=== PATIENT | male | born 1985 | race Caucasian/White ===

== ENCOUNTER 2020-02-14 09:43 | Emergency (ER) | payer MEDICAID, OTHER ==
[2020-02-14 10:27] LABS: Absolute Neutrophil Ct (ANC) 7.53 (1.4-6.9); BASOPHIL % 0.2 % (0.0-0.4); Basophil (Absolute #) 0.02 (0-0.4); Eosinophil % 0.7 % (0.00-5.0); Eosinophil (Absolute #) 0.07 (0-0.5); Hematocrit 45.1 % (42-50); Lymphocyte (Absolute #) 1.65 (1.0-4.6); Lymphocytes % 16.1 % (24.0-44.0); Mean Cell Volume 95.8 fl (78-100); Mean Corpuscular Hemoglobin 31.8 pg (26-32); Mean Corpuscular Hgb Concent. 33.3 g/dl (32-36); Mean Platelet Volume 10.1 fl (7.5-11.0); Monocytes % 9.7 % (0.0-12.0); Neutrophil % 73.3 % (36.0-66.0); Platelet Count 227 K/mm3 (150-450); Red Blood Count 4.71 M/mm3 (4.1-5.6); Red Cell Distribution Width 12.7 % (11.5-14.0); White Blood Count 10.3 K/mm3 (4.0-10.5)
[2020-02-14 10:37] LABS: ALBUMIN 4.3 g/dL (3.5-5.0); ALKALINE PHOSPHATASE 73 U/L (38-126); ANION GAP 9.9 MEQ/L (5-15); BLOOD UREA NITROGEN 16 mg/dL (9-20); CHLORIDE 100 mmol/L (98-107); Calcium 9.3 mg/dL (8.4-10.2); Carbon Dioxide 32 mmol/L (22-30); Creatinine 1 0.97 mg/dL (0.66-1.25); EST GLOMERULAR FILTRATION RATE > 60.0 ML/MIN; Glucose 123 mg/dL (74-106); Potassium 3.9 mmol/L (3.5-5.1); SGOT/AST 27 U/L (17-59); SGPT/ALT 40 U/L (0-50); SODIUM 138 mmol/L (137-145); Total Protein 7.6 g/dL (6.3-8.2)
--- NOTE | 2020-02-14 11:09 | ERPHSYRPT ---
- History of Present Illness Historian: patient Exam Limitations: no limitations Patient Subjective Stated Complaint: pt here for constipation for 2 weeks now, he has had a couple small loose stools over the last 2 weeks Triage Nursing Assessment: pt alert, resp easy, walked in, face mask on, abd soft nontender Physician History: 34 yo wm w constipation x 2wks. Pt denies h/o constipation. He states that he has mild lower abdominal pain which he rates a 4/10. Nothing makes the pain better or worse. Pt does occ take norco for LE pain. He denies N/V/melena/hematochezia/fever/dysuria/hematuria/chest pain/dyspnea/fever. Timing/Duration: week(s) (2wks) Activities at Onset: none Quality: dullness Abdominal Pain Onset Location: other (Lower abdomen) Pain Radiation: no radiation Severity of Pain-Max: mild Severity of Pain-Current: mild Modifying Factors: Improves With: nothing Associated Symptoms: No back, No chest pain, No diaphoresis, No diarrhea, No fever/chills, No fatigue, No headache, No heartburn, No loss of appetite, No nausea, No neck pain, No rash, No shortness of breath, No syncope, No testicular pain, No vomiting, No weakness Previous symptoms: no prior history Allergies/Adverse Reactions: No Known Drug Allergies Allergy (Unverified 02/14/20 09:57) Hx Influenza Vaccination/Date Given: No Hx Pneumococcal Vaccination/Date Given: No Immunizations Up to Date: Yes Travel Risk - International Travel Have you traveled outside of the country in past 3 weeks: No - Coronavirus Screening Close contact with a COVID-19 positive Pt in past 14-21 Days: No - Review of Systems Constitutional: No Symptoms Eyes: No Symptoms Ears, Nose, & Throat: No Symptoms Respiratory: No Symptoms Cardiac: No Symptoms Abdominal/Gastrointestinal: Abdominal Pain, Constipation, No Nausea, No Vomiting, No Diarrhea, No Hematemesis, No Hematochezia, No Melena, No Dysphagia Genitourinary Symptoms: No Symptoms Musculoskeletal: No Symptoms Skin: No Symptoms Neurological: No Symptoms Psychological: No Symptoms Endocrine: No Symptoms Hematologic/Lymphatic: No Symptoms Immunological/Allergic: No Symptoms - Past Medical History Pertinent Past Medical History: No Neurological History: No Pertinent History ENT History: No Pertinent History Cardiac History: No Pertinent History Respiratory History: No Pertinent History Endocrine Medical History: No Pertinent History Musculoskeletal History: No Pertinent History GI Medical History: No Pertinent History History: No Pertinent History Psycho-Social History: No Pertinent History Male Reproductive Disorders: No Pertinent History - Past Surgical History Past Surgical History: Yes Neuro Surgical History: No Pertinent History Cardiac: No Pertinent History Respiratory: No Pertinent History Gastrointestinal: No Pertinent History Genitourinary: No Pertinent History Musculoskeletal: No Pertinent History, Orthopedic Surgery Male Surgical History: No Pertinent History Other Surgical History: right clavical - Social History Smoking Status: Current every day smoker Exposure to second hand smoke: No Drug Use: marijuana Patient Lives Alone: No Significant Family History: no pertinent family hx - Nursing Vital Signs Nursing Vital Signs: Initial Vital Signs Temperature 97.2 F 02/14/20 09:52 Pulse Rate 96 H 02/14/20 09:52 Respiratory Rate 16 02/14/20 09:52 Blood Pressure 129/87 02/14/20 09:52 O2 Sat by Pulse Oximetry 96 02/14/20 09:52 Pain Scale Pain Intensity 8 - Physical Exam General Appearance: no apparent distress Eye Exam: PERRL/EOMI, eyes nml inspection, No scleral icterus, No pale conjunctivae Ears, Nose, Throat Exam: normal ENT inspection, TMs normal, pharynx normal, mo ist mucous membranes Neck Exam: normal inspection, non-tender, supple, full range of motion Respiratory Exam: normal breath sounds, lungs clear, airway intact, No respiratory distress Cardiovascular Exam: regular rate/rhythm, normal heart sounds, normal peripheral pulses, No murmur Gastrointestinal/Abdomen Exam: soft, normal bowel sounds, other (Mild RLQ/LLQ TTP wo guarding or rebound) Rectal Exam: deferred Back Exam: normal inspection, normal range of motion Extremity Exam: normal inspection, normal range of motion Neurologic Exam: alert, oriented x 3, cooperative, 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, n ormal mood/affect, nml cerebellar function, nml station & gait, sensation nml, No motor deficits, No sensory deficit Skin Exam: normal color, warm, dry Lymphatic Exam: adenopathy SpO2 Interpretation: normal SpO2: 96 O2 Delivery: Room Air - Course Nursing assessment & vital signs reviewed: Yes - CT Exams Abdomen/Pelvis CT Interpretation: Discussed w/radiologist, diverticulitis (possible early) Ordered Tests: Active Orders 24 hr Category Date Time Status ABDOMEN AND PELVIS W/0 CONTRAS [CT] Stat Exams 02/14/20 10:11 Completed CBC W DIFF Stat Lab 02/14/20 10:24 Completed CMP Stat Lab 02/14/20 10:24 Completed UA W/RFX UR CULTURE Stat Lab 02/14/20 11:17 Completed Urine Triage Profile Stat Lab 02/14/20 11:17 Completed Lab/Rad Data: Laboratory Result Diagrams 02/14/20 10:24 02/14/20 10:24 Laboratory Results 02/14/20 02/14/20 02/14/20 Range/Units 11:17 11:17 10:24 WBC (4.0-10.5) K/mm3 RBC (4.1-5.6) M/mm3 Hgb (12.5-18.0) gm/dl Hct (42-50) % MCV (78-100) fl MCH (26-32) pg MCHC (32-36) g/dl RDW (11.5-14.0) % Plt Count (150-450) K/mm3 MPV (7.5-11.0) fl Gran % (36.0-66.0) % Eos # (Auto) (0-0.5) Absolute Lymphs (auto) (1.0-4.6) Absolute Monos (auto) (0.0-1.3) Lymphocytes % (24.0-44.0) % Monocytes % (0.0-12.0) % Eosinophils % (0.00-5.0) % Basophils % (0.0-0.4) % Absolute Granulocytes (1.4-6.9) Basophils # (0-0.4) Sodium 138 (137-145) mmol/L Potassium 3.9 (3.5-5.1) mmol/L Chloride 100 (98-107) mmol/L Carbon Dioxide 32 H (22-30) mmol/L Anion Gap 9.9 (5-15) MEQ/L BUN 16 (9-20) mg/dL Creatinine 0.97 (0.66-1.25) mg/dL Estimated GFR > 60.0 ML/MIN Glucose 123 H (74-106) mg/dL Calcium 9.3 (8.4-10.2) mg/dL Total Bilirubin 0.60 (0.2-1.3) mg/dL AST 27 (17-59) U/L ALT 40 (0-50) U/L Alkaline Phosphatase 73 (38-126) U/L Serum Total Protein 7.6 (6.3-8.2) g/dL Albumin 4.3 (3.5-5.0) g/dL Urine Color ALEJANDRO (YELLOW) Urine Appearance SLIGHTLY CLOUDY (CLEAR) Urine pH 5.0 (5-6) Ur Specific Hennessey 1.032 (1.005-1.025) Urine Protein 30 (Negative) Urine Ketones NEGATIVE (NEGATIVE) Urine Blood NEGATIVE (0-5) Theodore/ul Urine Nitrite NEGATIVE (NEGATIVE) Urine Bilirubin NEGATIVE (NEGATIVE) Urine Urobilinogen NEGATIVE (0-1) mg/dL Ur Leukocyte Esterase NEGATIVE (NEGATIVE) Urine WBC (Auto) 0-2 (0-5) /HPF Urine RBC (Auto) NONE (0-2) /HPF U Epithel Cells (Auto) NONE (FEW) /HPF Urine Bacteria (Auto) NONE (NEGATIVE) /HPF Urine Mucus (Auto) SLIGHT (NEGATIVE) /HPF Urine Culture Reflexed NO (NO) Urine Glucose NEGATIVE (NEGATIVE) mg/dL Urine Opiates Level POSITIVE (NEGATIVE) Ur Methadone NEGATIVE (NEGATIVE) Urine Barbiturates NEGATIVE (NEGATIVE) Ur Phencyclidine (PCP) NEGATIVE (NEGATIVE) Urine Amphetamine NEGATIVE (NEGATIVE) U Benzodiazepine Level NEGATIVE (NEGATIVE) Urine Cocaine NEGATIVE (NEGATIVE) Urine Marijuana (THC) POSITIVE (NEGATIVE) 02/14/20 Range/Units 10:24 WBC 10.3 (4.0-10.5) K/mm3 RBC 4.71 (4.1-5.6) M/mm3 Hgb 15.0 (12.5-18.0) gm/dl Hct 45.1 (42-50) % MCV 95.8 (78-100) fl MCH 31.8 (26-32) pg MCHC 33.3 (32-36) g/dl RDW 12.7 (11.5-14.0) % Plt Count 227 (150-450) K/mm3 MPV 10.1 (7.5-11.0) fl Gran % 73.3 H (36.0-66.0) % Eos # (Auto) 0.07 (0-0.5) Absolute Lymphs (auto) 1.65 (1.0-4.6) Absolute Monos (auto) 1.00 (0.0-1.3) Lymphocytes % 16.1 L (24.0-44.0) % Monocytes % 9.7 (0.0-12.0) % Eosinophils % 0.7 (0.00-5.0) % Basophils % 0.2 (0.0-0.4) % Absolute Granulocytes 7.53 H (1.4-6.9) Basophils # 0.02 (0-0.4) Sodium (137-145) mmol/L Potassium (3.5-5.1) mmol/L Chloride (98-107) mmol/L Carbon Dioxide (22-30) mmol/L Anion Gap (5-15) MEQ/L BUN (9-20) mg/dL Creatinine (0.66-1.25) mg/dL Estimated GFR ML/MIN Glucose (74-106) mg/dL Calcium (8.4-10.2) mg/dL Total Bilirubin (0.2-1.3) mg/dL AST (17-59) U/L ALT (0-50) U/L Alkaline Phosphatase (38-126) U/L Serum Total Protein (6.3-8.2) g/dL Albumin (3.5-5.0) g/dL Urine Color (YELLOW) Urine Appearance (CLEAR) Urine pH (5-6) Ur Specific Hennessey (1.005-1.025) Urine Protein (Negative) Urine Ketones (NEGATIVE) Urine Blood (0-5) Theodore/ul Urine Nitrite (NEGATIVE) Urine Bilirubin (NEGATIVE) Urine Urobilinogen (0-1) mg/dL Ur Leukocyte Esterase (NEGATIVE) Urine WBC (Auto) (0-5) /HPF Urine RBC (Auto) (0-2) /HPF U Epithel Cells (Auto) (FEW) /HPF Urine Bacteria (Auto) (NEGATIVE) /HPF Urine Mucus (Auto) (NEGATIVE) /HPF Urine Culture Reflexed (NO) Urine Glucose (NEGATIVE) mg/dL Urine Opiates Level (NEGATIVE) Ur Methadone (NEGATIVE) Urine Barbiturates (NEGATIVE) Ur Phencyclidine (PCP) (NEGATIVE) Urine Amphetamine (NEGATIVE) U Benzodiazepine Level (NEGATIVE) Urine Cocaine (NEGATIVE) Urine Marijuana (THC) (NEGATIVE) - Progress Progress: unchanged Progress Note: 02/14/20 11:50 Pt stable throughout stay. Refuses any pain meds. Counseled pt/family regarding: lab results, rad results - Departure Departure Disposition: Home Clinical Impression: Diverticulitis Condition: Stable Critical Care Time: No Referrals: DOCTOR,NO FAMILY [Primary Care Provider] - Instructions: Diverticulitis (DC) Additional Instructions: Follow up with your family MD in 1-2 days Start Flagyl/Cipro john Return to ER for increasing pain or temperature greater than 100.5 Forms: Work/School Release Form Prescriptions: Ciprofloxacin HCl [Cipro] 500 mg PO BID #20 tablet Metronidazole 500 mg [Flagyl 500 MG] 500 mg PO TID #30 tablet
[2020-02-14 11:32] LABS: Appearance SLIGHTLY CLOUDY (CLEAR); Bilirubin NEGATIVE (NEGATIVE); Blood NEGATIVE Ery/ul (0-5); Glucose NEGATIVE (NEGATIVE); Ketones NEGATIVE (NEGATIVE); Leukocyte Esterase NEGATIVE (NEGATIVE); Mucus SLIGHT /HPF (NEGATIVE); Nitrite NEGATIVE (NEGATIVE); Protein,Urine Dip 30 (Negative); Specific Gravity 1.032 (1.005-1.025); Urobilinogen NEGATIVE mg/dL (0-1); WBC 0-2 /HPF (0-5)
[2020-02-14 11:44] LABS: Amphetamine,Urine NEGATIVE (NEGATIVE); Barbiturate,Urine NEGATIVE (NEGATIVE); Benzodiazepine,Urine NEGATIVE (NEGATIVE); Cocaine,Urine NEGATIVE (NEGATIVE); Methadone,Urine NEGATIVE (NEGATIVE); Opiate,Urine POSITIVE (NEGATIVE); PCP,Urine NEGATIVE (NEGATIVE); THC,Urine POSITIVE (NEGATIVE)
--- NOTE | 2020-02-14 11:44 | XRAY ---
Exam: CT of the abdomen and pelvis without IV contrast from 02/14/2020. CTDI: 12.6 mGy Comparison: None. Indication: 34-year-old male with abdominal pain and constipation for 2 weeks. Technique: Non-IV contrast axial images were obtained through the abdomen and pelvis. No oral contrast was given. Reconstructed coronal and sagittal images were created and reviewed. Findings: The lung bases appear clear. No posterior pleural fluid is seen. The transverse heart size appears normal. The liver and spleen appear of normal size and configuration. Assessment of the solid organs is limited on a non-IV contrast study only, but no gross hepatic/splenic mass or intrahepatic biliary duct distention is seen. The gallbladder is mildly distended within the right upper quadrant. No intraluminal dense calcifications are seen. The pancreas and adrenal glands appear unremarkable. The kidneys are of normal size and shape. No renal calculi, hydronephrosis, or definite renal mass is seen. The ureters appear of normal diameter without ureterolith. The abdominal aorta reveals no evidence of aneurysm. A retroaortic left renal vein is seen representing a normal variant. No abnormal retroperitoneal or mesenteric lymphadenopathy is seen. There is no free intraperitoneal air. The anterior abdominal wall appears intact. The appendix appears unremarkable within the right lower quadrant. The bowel appears nonobstructed. A mild amount of scattered colonic stool is seen. There is some questionable bowel wall thickening at the level of the sigmoid colon. I cannot exclude some minimal sigmoid diverticulosis. More importantly, there is abnormal pericolonic hazy stranding adjacent to the anterior aspect of the sigmoid colon at and just to the left of the pelvic midline. This might reflect acute diverticulitis or colitis. I see no associated free intraperitoneal fluid or other abnormal fluid collection. No bubbles of free air are seen. There are no enlarged pelvic lymph nodes. Only minimal urine is seen within the urinary bladder. No urinary bladder stone is seen. There is an apparent 7 mm calcified granuloma, phlebolith, or small lymph node just superior to the urinary bladder and barely to the left of midline. The seminal vesicles and prostate gland appear unremarkable. The inguinal regions appear normal. Some small postinflammatory lymph nodes are seen within each groin. The skeleton reveals no acute fracture or aggressive bone lesion. Impression: 1. There is some questionable mild wall thickening within the sigmoid colon. There is also questionable minimal diverticulosis. The most apparent finding is abnormal pericolonic soft tissue density and stranding just anterior to the sigmoid colon in the midline and just to the left of midline. See axial images #67 through #76. I see no bubbles of free intraperitoneal air or abnormal fluid collections or free intraperitoneal fluid. These findings may reflect acute sigmoid diverticulitis or colitis. Correlate clinically. 2. The bowel appears nonobstructive. Only a mild amount of scattered colonic stool is noted. The appendix appears normal. 3. The remainder of the non-IV contrast CT of the abdomen and pelvis appears unremarkable.
[2020-02-14 11:54] VITALS: O2SAT 96
[2020-02-14 12:11] VITALS: BP 129/71; PULSE 58
== END 2020-02-14 12:11 | disposition home or self-care (01) ==
LOC: ED 09:43
DX: K57.92 Diverticulitis of intestine, part unspecified, without perforation or abscess without bleeding (principal)
CPT/HCPCS: 36415; 74176; 80053; 80307; 81001; 85025; 99284

== ENCOUNTER 2021-08-13 10:22 | Emergency (ER) | payer OTHER ==
--- NOTE | 2021-08-13 10:40 | ERPHSYRPT ---
- History of Present Illness Time Seen by Provider: 08/13/21 10:37 Source: patient Exam Limitations: no limitations Patient Subjective Stated Complaint: Pt states "I want a covid test." Triage Nursing Assessment: PT presented alert and oriented X 3, skin wpd pt ambulates with an upright steady gait, able to speak in clear full sentences pt in no apparent respiratory distress. Physician History: Patient is a 35-year-old white male who presents with a complaint of chills and sweats since yesterday. He request a by next test. He says he has had some sore throat slight cough some nausea some diarrhea but no vomiting. He started yesterday with his symptoms and has not had no Covid vaccine and no flu vaccine. He complains of body aches as well. Timing/Duration: yesterday Fever Severity: mild Associated Symptoms: cough, diaphoresis, nausea/vomiting, sore throat Allergies/Adverse Reactions: No Known Drug Allergies Allergy (Verified 08/13/21 10:31) Hx Influenza Vaccination/Date Given: No Hx Pneumococcal Vaccination/Date Given: No Immunizations Up to Date: Yes Travel Risk - International Travel Have you traveled outside of the country in past 3 weeks: No - Coronavirus Screening Are you exhibiting any of the following symptoms?: No Close contact with a COVID-19 positive Pt in past 14-21 Days: No - Vaccine Status Have you recieved a Covid-19 vaccination: No - Review of Systems Constitutional: Fever, Chills, Night Sweats Eyes: No Symptoms Ears, Nose, & Throat: No Symptoms, Throat Swelling, Painful Swallowing Respiratory: Cough, No Dyspnea Cardiac: No Chest Pain, No Edema, No Syncope Abdominal/Gastrointestinal: Nausea, Diarrhea, No Abdominal Pain, No Vomiting Genitourinary Symptoms: No Dysuria Musculoskeletal: No Back Pain, No Neck Pain Skin: No Rash Neurological: No Dizziness, No Focal Weakness, No Sensory Changes Psychological: No Symptoms Endocrine: No Symptoms All Other Systems: Reviewed and Negative - Past Medical History Pertinent Past Medical History: No Neurological History: No Pertinent History ENT History: No Pertinent History Cardiac History: No Pertinent History Respiratory History: No Pertinent History Endocrine Medical History: No Pertinent History Musculoskeletal History: No Pertinent History GI Medical History: No Pertinent History History: No Pertinent History Psycho-Social History: No Pertinent History Male Reproductive Disorders: No Pertinent History - Past Surgical History Past Surgical History: Yes Neuro Surgical History: No Pertinent History Cardiac: No Pertinent History Respiratory: No Pertinent History Gastrointestinal: No Pertinent History Genitourinary: No Pertinent History Musculoskeletal: No Pertinent History, Orthopedic Surgery Male Surgical History: No Pertinent History Other Surgical History: right clavical - Social History Smoking Status: Current every day smoker Exposure to second hand smoke: No Drug Use: marijuana Patient Lives Alone: No Significant Family History: no pertinent family hx - Nursing Vital Signs Nursing Vital Signs: Initial Vital Signs Temperature 98.5 F 08/13/21 10:28 Pulse Rate 98 H 08/13/21 10:28 Respiratory Rate 22 08/13/21 10:28 Blood Pressure 139/89 08/13/21 10:28 O2 Sat by Pulse Oximetry 96 08/13/21 10:28 Pain Scale Pain Intensity 0 - Physical Exam General Appearance: mild distress, alert Eye Exam: PERRL/EOMI ENT Exam: normal ENT inspection, pharyngeal erythema, tonsillar exudate, airway intact Neck Exam: supple, full range of motion, No meningismus Respiratory Exam: normal breath sounds, lungs clear, no respiratory distress Cardiovascular/Chest Exam: normal heart sounds, regular rate/rhythm, No murmur, No edema Gastrointestinal/Abdominal Exam: soft, non tender, no distention Extremity Exam: non-tender, normal range of motion, normal inspection, normal capillary refill Neurologic Exam: alert, oriented x 3, cooperative, 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, normal mood/affect, sensation nml, No motor deficits Skin Exam: normal color, warm, dry, No rash SpO2: 96 - Course Nursing assessment & vital signs reviewed: Yes Lab/Rad Data: Laboratory Results 08/13/21 08/13/21 Range/Units 10:56 10:46 Influenza Type A Ag NEGATIVE (NEGATIVE) Influenza Type B Ag NEGATIVE (NEGATIVE) RSV (PCR) NEGATIVE (Negative) SARS-CoV-2 (PCR) NEGATIVE (NEGATIVE) Group A Strep Antibody DETECTED (NEGATIVE) - Progress Progress: unchanged - Departure Departure Disposition: Home Clinical Impression: Strep pharyngitis Condition: Stable Critical Care Time: No Referrals: DOCTOR,NO FAMILY [Primary Care Provider] - Follow up/PCP as directed Instructions: Sore Throat, Adult (DC) Prescriptions: Cephalexin Mh 500 mg [Keflex 500 mg] 500 mg PO QID #40 cap
[2021-08-13 11:26] VITALS: BP 142/90; PULSE 86
[2021-08-13 11:39] LABS: INFLUENZA A NEGATIVE (NEGATIVE); INFLUENZA B NEGATIVE (NEGATIVE); RESPIRATORY SYNCTIAL VIRUS NEGATIVE (Negative); SARS-CoV-2 Xpert Express NEGATIVE (NEGATIVE)
[2021-08-13 11:52] VITALS: O2SAT 96
== END 2021-08-13 11:57 | disposition home or self-care (01) ==
LOC: ED 10:22
DX: J02.0 Streptococcal pharyngitis (principal); B95.0 Streptococcus, group A, as the cause of diseases classified elsewhere; Z72.0 Tobacco use; R68.83 Chills (without fever); R05.9 Cough, unspecified; R11.0 Nausea; M79.10 Myalgia, unspecified site
CPT/HCPCS: 0241U; 87651; 99283

== ENCOUNTER 2022-10-29 21:14 | Emergency (ER) | payer OTHER ==
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
[2022-10-29] MEDS ORDERED: PERCOCET TABLET 5/325MG PO STA (22:29)
[2022-10-29] MEDS ORDERED: PERCOCET TABLET 5/325MG ONE (22:37)
[2022-10-29 22:51] VITALS: BP 118/69; PULSE 71; O2SAT 97
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
== END 2022-10-29 22:50 | disposition home or self-care (01) ==
LOC: ED 21:14
DX: M25.522 Pain in left elbow (principal); Z28.310 Unvaccinated for COVID-19; Z72.0 Tobacco use
CPT/HCPCS: 73080; 99282; A9270-GY

== ENCOUNTER 2023-02-05 15:48 | Day surgery (SDC) | payer OTHER ==
[2023-02-05] MEDS ORDERED: Sodium Chloride 0.9(Preservative Free) 10 ML IJ ONE (15:49)
[2023-02-05] MEDS ORDERED: LIDOCAINE HCL 1% 50 MG/5 ML VL PF IJ ONE (15:49)
[2023-02-05] MEDS ORDERED: Depo-Medrol 40 MG/ML IM ONE (15:49)
[2023-02-05] MEDS ORDERED: Lactated Ringers 1,000 ML IV ONE (17:54)
--- NOTE | 2023-02-06 08:38 | XRAY ---
Indication: Left L4-S1 transforaminal CHRISTOPHE. Intraoperative fluoroscopy provided for 45 seconds. 7 digital spot images submitted for interpretation demonstrates posterior needle tips projecting over the expected left L4 and L5 nerve roots. Small amount of contrast injected for needle tip placement. Correlate with intraoperative findings/report.
--- NOTE | 2023-02-06 09:09 | XRAY ---
45 seconds of fluoroscopy was used in surgery for a left L4-S1 transforaminal CHRISTOPHE.
== END 2023-02-05 18:05 | disposition home or self-care (01) ==
LOC: SDC-PAIN 15:48
PROVIDERS: ATTEND Psychiatry & Neurology Pain Medicine
DX: M54.16 Radiculopathy, lumbar region (principal); Z79.899 Other long term (current) drug therapy
CPT/HCPCS: 64483; 64484; 72100; 77003; J1030; J2001; Q9966

== ENCOUNTER 2023-07-10 14:24 | Day surgery (SDC) | payer OTHER ==
[2023-07-10] MEDS ORDERED: Sodium Chloride 0.9(Preservative Free) 10 ML IJ ONE (14:25)
[2023-07-10] MEDS ORDERED: XYLOCAINE-MPF 1% 5ML SDV IJ ONE (14:25)
[2023-07-10] MEDS ORDERED: Decadron 4 MG INJ IV ONE (14:25)
[2023-07-10] MEDS ORDERED: Lactated Ringers 1,000 ML IV ONE (15:06)
[2023-07-10] MEDS ORDERED: Versed 2 MG/2 ML Injection ONE (15:11)
[2023-07-10] MEDS ORDERED: DIPRIVAN 200 MG/20 ML IV ONE ×2 (15:11→15:18)
--- NOTE | 2023-07-10 16:30 | XRAY ---
Indication: Left piriformis injection. Intraoperative fluoroscopy provided for 10 seconds. Single digital spot image submitted for interpretation demonstrates posterior needle tip projecting over left piriformis. Small amount of contrast injected for needle tip placement. Correlate with intraoperative findings/report.
--- NOTE | 2023-07-10 16:30 | XRAY ---
Indication: Left L4-S1 transforaminal CHRISTOPHE. Intraoperative fluoroscopy provided for 38 seconds. 4 digital spot images submitted for interpretation demonstrates posterior needle tips projecting over the left L4 and L5 nerve roots. Small amount of contrast injected for needle tip placement. Correlate with intraoperative findings/report.
--- NOTE | 2023-07-10 16:46 | XRAY ---
10 seconds of fluoroscopy was used in surgery for a left piriformis injection.
--- NOTE | 2023-07-10 16:46 | XRAY ---
38 seconds of fluoroscopy was used in surgery for a left L4-S1 transforaminal CHRISTOPHE.
== END 2023-07-10 15:44 | disposition home or self-care (01) ==
LOC: SDC-PAIN 14:24
PROVIDERS: ATTEND Psychiatry & Neurology Pain Medicine
DX: M54.16 Radiculopathy, lumbar region (principal); M79.18 Myalgia, other site
CPT/HCPCS: 20552; 64483; 64484; 72100; 72170; 77002; 77003; J1100; J2250; J2704; Q9966

== ENCOUNTER 2023-08-24 10:19 | Emergency (ER) | payer OTHER ==
[2023-08-24 10:57] VITALS: BP 161/89; PULSE 61; RESP 16; TEMP 98; O2SAT 98
[2023-08-24] MEDS ORDERED: TORAdol 30 mg Injection ONE (11:23)
[2023-08-24] MEDS ORDERED: Norflex 60 MG/2 ML ONE (11:23)
[2023-08-24] MEDS: Norflex 60 MG/2 ML IM ONE (11:27)
[2023-08-24] MEDS: TORAdol 30 mg Injection IM ONE (11:28)
--- NOTE | 2023-08-24 11:42 | ERPHSYRPT ---
- History of Present Illness Time Seen by Provider: 08/24/23 10:21 Source: patient Exam Limitations: no limitations Patient Subjective Stated Complaint: chronic back flare this am. "pain in mid back and radiates around to front of diaphram area" Triage Nursing Assessment: C/o mid back pain starting this am. States has history of same pain in past. Denies any type of injury. States back pain reproduced with deep breath and movement. Denies abd pain, denies n/v, no shortness of breath. Takes vicodin for back pain last dose at 0700 this am. Denies pain relief with vicodin. No problems with urination. Physician History: 37-year-old male presented in the ER with complaint of mid back pain that started almost couple of hours ago while he was at work. Patient reports history of chronic back pain and arthritis. Patient reports moderate to severe sharp pain on the right mid to lower back more in the paraspinal area, aggravated with activity and movements, nonradiating, no associated numbness tingling or weakness of lower extremities. Denies any midline back pain. Reports having similar symptoms multiple times in the past. Denies lifting heavy objects more than usual. Allergies/Adverse Reactions: No Known Drug Allergies Allergy (Verified 08/13/21 10:31) Home Medications: Hydrocodone/Acetaminophen [Hydrocodone-Acetamin 5-325 mg] 5 mg PO DAILY PRN PRN 08/24/23 [History] Omeprazole/Sodium Bicarbonate [Omeprazole-Bicarb 20-1,100 Cap] 08/24/23 [History] Hx Tetanus, Diphtheria Vaccination/Date Given: Yes Hx Influenza Vaccination/Date Given: No Hx Pneumococcal Vaccination/Date Given: No Travel Risk - International Travel Have you traveled outside of the country in past 3 weeks: No - Emerging Infectious Disease Are you exhibiting symptoms associated with any current EIDs: No - Review of Systems Constitutional: No Symptoms Ears, Nose, & Throat: No Symptoms Respiratory: No Symptoms Cardiac: No Symptoms Abdominal/Gastrointestinal: No Symptoms Genitourinary Symptoms: No Symptoms Musculoskeletal: Arthralgias, Back Pain Skin: No Symptoms Neurological: No Symptoms Endocrine: No Symptoms Hematologic/Lymphatic: No Symptoms Immunological/Allergic: No Symptoms - Past Medical History Pertinent Past Medical History: Yes Neurological History: No Pertinent History ENT History: No Pertinent History Cardiac History: No Pertinent History Respiratory History: No Pertinent History Endocrine Medical History: No Pertinent History Musculoskeletal History: No Pertinent History GI Medical History: No Pertinent History History: No Pertinent History Psycho-Social History: No Pertinent History Male Reproductive Disorders: No Pertinent History - Past Surgical History Past Surgical History: Yes Neuro Surgical History: No Pertinent History Cardiac: No Pertinent History Respiratory: No Pertinent History Gastrointestinal: No Pertinent History Genitourinary: No Pertinent History Musculoskeletal: No Pertinent History, Orthopedic Surgery Male Surgical History: No Pertinent History Other Surgical History: right clavical Significant Family History: no pertinent family hx - Social History Smoking Status: Current every day smoker How long have you smoked: 15 yrs Exposure to second hand smoke: No Drug Use: none Patient Lives Alone: No - Nursing Vital Signs Nursing Vital Signs: Initial Vital Signs Temperature 98.0 F 08/24/23 10:39 Pulse Rate 61 08/24/23 10:39 Respiratory Rate 16 08/24/23 10:39 Blood Pressure 161/89 08/24/23 10:39 O2 Sat by Pulse Oximetry 98 08/24/23 10:39 Pain Scale Pain Intensity 8 - Physical Exam General Appearance: no apparent distress Eye Exam: PERRL/EOMI Neck Exam: normal inspection, full range of motion Respiratory Exam: normal breath sounds, lungs clear Cardiovascular Exam: regular rate/rhythm, normal heart sounds Gastrointestinal Exam: soft, normal bowel sounds, No tenderness Back Exam: normal inspection, muscle spasm (Right lumbar paraspinal area), No vertebral tenderness Extremity Exam: normal inspection, normal range of motion, pelvis stable Neurologic Exam: alert, oriented x 3, cooperative, return to service inspector II-XII nml as tested Skin Exam: normal color SpO2 Interpretation: normal SpO2: 98 O2 Delivery: Room Air Ordered Tests: Medication Summary Discontinued Medications Generic Name Dose Route Start Last Admin Trade Name Freq PRN Reason Stop Dose Admin Ketorolac Tromethamine 30 mg 08/24/23 11:17 08/24/23 11:28 Ketorolac Tromethamine 30 Mg/Ml Inj IM 08/24/23 11:18 30 mg STAT ONE Administration Ketorolac Tromethamine Confirm 08/24/23 11:23 Ketorolac Tromethamine 30 Mg/Ml Inj Administered 08/24/23 11:24 Dose 30 mg .ROUTE .STK-MED ONE Orphenadrine Citrate 60 mg 08/24/23 11:17 08/24/23 11:27 Orphenadrine Citrate 60 Mg/2 Ml Vial IM 08/24/23 11:18 60 mg STAT ONE Administration Orphenadrine Citrate Confirm 08/24/23 11:23 Orphenadrine Citrate 60 Mg/2 Ml Vial Administered 08/24/23 11:24 Dose 60 mg .ROUTE .STK-MED ONE - Progress Progress: improved Progress Note: 08/24/23 11:58 37-year-old is evaluated in the ER for right lower back pain for last couple of hours while working. Patient does not have any midline tenderness. Tenderness in the right paraspinal area. No abdominal tenderness. No UTI symptoms. No cauda equina symptoms. Had similar symptoms multiple times in the past in the same area. He is given Toradol and Norflex, on reevaluation feeling much better. I do not think patient needs imaging. He is given a prescription of Robaxin to go home and recommended continue with [place] and take ibuprofen as needed. Discussed signs symptoms of worsening needing return to ER which she seems understanding. Stable for discharge. Counseled pt/family regarding: diagnosis, need for follow-up Medical Desision Making - Risk of complications The pt has a mod risk of morbidity or mortality based on: Need for prescription drug management - Departure Departure Disposition: Home Clinical Impression: Strain of back Condition: Stable Critical Care Time: No Referrals: GELY CHRISTOPHER NP [Primary Care Provider] - Follow up with PCP 1 day Instructions: Back Muscle Strain (DC) Additional Instructions: Continue with [place] which you have at home. Take ibuprofen and Robaxin as needed. Follow-up with primary care for reevaluation. Return to ER for intractable pain, numbness tingling weakness of lower extremities, saddle anesthesia, or loss of bowel or bladder control etc. Prescriptions: Ibuprofen 600 mg PO Q6HPRN PRN 10 Days #20 tablet PRN Reason: Pain Methocarbamol [Robaxin] 500 mg PO Q6H 10 Days #30 tablet
== END 2023-08-24 12:35 | disposition home or self-care (01) ==
LOC: ED 10:19
DX: S39.012A Strain of muscle, fascia and tendon of lower back, initial encounter (principal); M54.6 Pain in thoracic spine; Z79.891 Long term (current) use of opiate analgesic; Z79.899 Other long term (current) drug therapy; Z72.0 Tobacco use
CPT/HCPCS: 96372; 99283; J1885; J2360

== ENCOUNTER 2023-12-07 20:47 | Emergency (ER) | payer OTHER ==
[2023-12-07 21:33] VITALS: RESP 16; TEMP 97.8; O2SAT 98
--- NOTE | 2023-12-07 21:43 | ERPHSYRPT ---
- History of Present Illness Time Seen by Provider: 12/07/23 21:34 Source: patient Exam Limitations: no limitations Patient Subjective Stated Complaint: pt states he woke up this morning with pain and feeling of something in his lt eye. Triage Nursing Assessment: pt alert and oriented, answers questions approp. pt ambulates into room with steady gait noted. respirations nonlabored. skin warm and dry. tearing noted from lt eye. no obvious foreign body noted. Physician History: Pt states he awoke this morning about 11 hours ago and had pain in his left eye; denies any eye injury, fever, chest pain, shortness of air. Allergies/Adverse Reactions: No Known Drug Allergies Allergy (Verified 12/07/23 21:34) Home Medications: Omeprazole 40 mg PO DAILY 12/07/23 [History] Hx Tetanus, Diphtheria Vaccination/Date Given: Yes Hx Influenza Vaccination/Date Given: No Hx Pneumococcal Vaccination/Date Given: No Immunizations Up to Date: Yes Travel Risk - International Travel Have you traveled outside of the country in past 3 weeks: No - Emerging Infectious Disease Are you exhibiting symptoms associated with any current EIDs: No - Review of Systems Constitutional: No Fever Eyes: Eye Pain (left) Respiratory: No Dyspnea Cardiac: No Chest Pain - Past Medical History Pertinent Past Medical History: Yes Neurological History: No Pertinent History ENT History: No Pertinent History Cardiac History: No Pertinent History Respiratory History: No Pertinent History Endocrine Medical History: No Pertinent History Musculoskeletal History: No Pertinent History GI Medical History: No Pertinent History History: No Pertinent History Psycho-Social History: No Pertinent History Male Reproductive Disorders: No Pertinent History Other Medical History: sciatica - Past Surgical History Past Surgical History: Yes Neuro Surgical History: No Pertinent History Cardiac: No Pertinent History Respiratory: No Pertinent History Gastrointestinal: No Pertinent History Genitourinary: No Pertinent History Musculoskeletal: No Pertinent History, Orthopedic Surgery Male Surgical History: No Pertinent History Other Surgical History: right clavical, sternum Significant Family History: no pertinent family hx - Social History Smoking Status: Current every day smoker How long have you smoked: 18 yrs Exposure to second hand smoke: No Drug Use: none Patient Lives Alone: No - Social Determinants of Health Will the patient participate in the screening: Yes Do you worry about a steady place to live?: No Do you have any problems with any of the following?: No known problems In the past 12 months,have you had to go without utilities?: No Transportation Issues: No Has anyone in your support network made you feel unsafe?: No Have you or anyone in your house had to go without enough: No - Nursing Vital Signs Nursing Vital Signs: Initial Vital Signs Temperature 97.8 F 12/07/23 21:19 Pulse Rate 75 12/07/23 21:19 Respiratory Rate 16 12/07/23 21:19 Blood Pressure 145/73 12/07/23 21:19 O2 Sat by Pulse Oximetry 98 12/07/23 21:19 Pain Scale Pain Intensity 8 - Physical Exam General Appearance: alert Vision Acuity Degree Evaluation Phase: Uncorrected Vision Acuity Right Eye: 20/30 Vision Acuity Left Eye: 20/200 Eye Exam: left eye: conjunctival inflammation, corneal abrasion (at 3 o'clock and from 5:30 to 7:30 o'clock), bilateral eye: PERRL, EOMI Neurologic: alert, cooperative Skin Exam: warm, dry SpO2 Interpretation: normal SpO2: 98 O2 Delivery: Room Air Procedures - Eye Procedure Tetracaine Drops Administered: Yes Eye Irrigated w/ Saline (ccs): 2 Antibiotic Oinment/Drps Admin: left eye - Course Nursing assessment & vital signs reviewed: Yes Ordered Tests: Active Orders 24 hr Category Date Time Status Visual Acuity STAT Care 12/07/23 21:42 Active Medication Summary Discontinued Medications Generic Name Dose Route Start Last Admin Trade Name Wilfredo PRN Reason Stop Dose Admin Ciprofloxacin 2.5 ml 12/07/23 21:42 Ciprofloxacin Hcl 2.5 Ml Bottle OP 12/07/23 21:43 STAT ONE Eye Irrigation Solution Confirm 12/07/23 21:46 Sodium/Potassium/John/Magnesium 30 Ml Eye Wash Administered 12/07/23 21:47 Dose 30 ml .ROUTE .STK-MED ONE Fluorescein Sodium 1 mg 12/07/23 21:42 Fluorescein Sodium 1 Mg/Strip Strip OP 12/07/23 21:43 STAT ONE Fluorescein Sodium Confirm 12/07/23 21:46 Fluorescein Sodium 1 Mg/Strip Strip Administered 12/07/23 21:47 Dose 1 mg OP .STK-MED ONE Ofloxacin Confirm 12/07/23 21:46 Ofloxacin 0.3% Opth 5 Ml Eye Drops Administered 12/07/23 21:47 Dose 5 ml OP .STK-MED ONE Tetracaine HCl 4 ml 12/07/23 21:42 Tetracaine Hcl/Pf 4 Ml Bottle OP 12/07/23 21:43 STAT STA Tetracaine HCl Confirm 12/07/23 21:45 Tetracaine Hcl/Pf 4 Ml Bottle Administered 12/07/23 21:46 Dose 4 ml OP .STK-MED ONE - Progress Progress: improved Counseled pt/family regarding: diagnosis, need for follow-up - Departure Departure Disposition: Home Clinical Impression: Corneal abrasion, left, Conjunctivitis, left eye Condition: Stable Critical Care Time: No Referrals: GEYL CHRISTOPHER NP [Primary Care Provider] - Follow up/PCP as directed Instructions: Conjunctivitis (pink eye), Corneal abrasion Additional Instructions: Follow up with eye doctor tomorrow. Place 1 drop of ciprofloxin eye drops in left eye every 2 hours for the first 2 days and every 4 hours for the following 5 days.
[2023-12-07] MEDS ORDERED: TETRACAINE 0.5% STERI-UNIT SOL OP ONE (21:45)
[2023-12-07] MEDS ORDERED: Eye-Stream Solution ONE (21:46)
[2023-12-07] MEDS ORDERED: Fluor-I-Strip/Ful-Flo OP ONE (21:46)
[2023-12-07] MEDS ORDERED: Ocuflox OPHTHALMIC 5 ML OP ONE (21:46)
[2023-12-07] MEDS ORDERED: CIPROFLOXACIN HCL OP ONE (22:20)
[2023-12-07] MEDS: CIPROFLOXACIN HCL OP ONE (22:20)
[2023-12-07] MEDS: TETRACAINE 0.5% STERI-UNIT SOL OP STA (22:21)
[2023-12-07] MEDS: Fluor-I-Strip/Ful-Flo OP ONE (22:21)
[2023-12-07 22:31] VITALS: BP 132/75; PULSE 71
== END 2023-12-07 22:29 | disposition home or self-care (01) ==
LOC: ED 20:47
DX: S05.02XA Injury of conjunctiva and corneal abrasion without foreign body, left eye, initial encounter (principal); H10.9 Unspecified conjunctivitis; Z72.0 Tobacco use
CPT/HCPCS: 99281; A9270-GY

== ENCOUNTER 2024-09-02 05:08 | Emergency (ER) | payer OTHER ==
[2024-09-02 05:24] VITALS: TEMP 97.8; O2SAT 97
[2024-09-02 06:19] VITALS: BP 133/78; PULSE 63; RESP 18
[2024-09-02] MEDS ORDERED: TORAdol 30 mg Injection ONE (06:43)
[2024-09-02] MEDS: TORAdol 30 mg Injection IM ONE (06:44)
--- NOTE | 2024-09-02 07:11 | ERPHSYRPT ---
- History of Present Illness Time Seen by Provider: 09/02/24 06:39 Source: patient Exam Limitations: no limitations Patient Subjective Stated Complaint: c/o right wrist pain Triage Nursing Assessment: patient brought self to ED with c/o right wrist pain that he rates 8/10. 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 patient is unable to move wrist without pain, slight swelling present and wrist is tender to touch. gait steady, vitals wnl, skin w/n/d, pulses normal, patient doesn't appear to be in any distress at this time. Physician History: 38 years old male [id number] presented in the ER with complaint of pain in the right wrist and base of thumb since yesterday. Patient remembers scraping the floor yesterday. Denies any injury otherwise. Pain is moderate to severe sharp, radiating to the thumb. Aggravated with movements and palpation. Allergies/Adverse Reactions: No Known Drug Allergies Allergy (Verified 09/02/24 05:12) Home Medications: Omeprazole 40 mg PO DAILY 12/07/23 [History] Meloxicam 7.5 mg PO DAILY PRN PRN 09/02/24 [History] clonazePAM [Clonazepam] 0.5 mg PO DAILY PRN PRN 09/02/24 [History] Hx Tetanus, Diphtheria Vaccination/Date Given: No (unknown) Hx Influenza Vaccination/Date Given: No Hx Pneumococcal Vaccination/Date Given: No Travel Risk - International Travel Have you traveled outside of the country in past 3 weeks: No - Emerging Infectious Disease Are you exhibiting symptoms associated with any current EIDs: No - Review of Systems Constitutional: No Symptoms Respiratory: No Symptoms Cardiac: No Symptoms Abdominal/Gastrointestinal: No Symptoms Musculoskeletal: Joint Redness, Joint Pain, Joint Swelling Skin: No Symptoms Neurological: No Symptoms Endocrine: No Symptoms - Past Medical History Pertinent Past Medical History: Yes Neurological History: No Pertinent History ENT History: No Pertinent History Cardiac History: No Pertinent History Respiratory History: No Pertinent History Endocrine Medical History: No Pertinent History Musculoskeletal History: No Pertinent History GI Medical History: No Pertinent History History: No Pertinent History Psycho-Social History: No Pertinent History Male Reproductive Disorders: No Pertinent History Other Medical History: sciatica, right foot injury (bone spurs, achilles issues) plates and pins in right shoulder - Past Surgical History Past Surgical History: Yes Neuro Surgical History: No Pertinent History Cardiac: No Pertinent History Respiratory: No Pertinent History Gastrointestinal: No Pertinent History Genitourinary: No Pertinent History Musculoskeletal: No Pertinent History, Orthopedic Surgery Male Surgical History: No Pertinent History Other Surgical History: right clavical, sternum Significant Family History: no pertinent family hx - Social History Smoking Status: Current every day smoker Exposure to second hand smoke: No Drug Use: none - Social Determinants of Health Will the patient participate in the screening: Yes Do you worry about a steady place to live?: No Do you have any problems with any of the following?: No known problems In the past 12 months,have you had to go without utilities?: No Transportation Issues: No Has anyone in your support network made you feel unsafe?: No Have you or anyone in your house had to go w/o enough food: No - Nursing Vital Signs Nursing Vital Signs: Initial Vital Signs Blood Pressure 114/87 09/02/24 05:14 O2 Sat by Pulse Oximetry 95 09/02/24 05:14 Pain Scale Pain Intensity 10 - Physical Exam General Appearance: no apparent distress Neck Exam: normal inspection, supple, full range of motion Cardiovascular/Respiratory Exam: normal breath sounds, regular rate/rhythm Wrist Exam: normal inspection, bone tenderness (Distal radius) Hand Exam: bone tenderness (Anatomical snuffbox and base of thumb), limited ROM, soft tissue tenderness (Base of fifth metatarsal thumb), swelling Neuro/Tendon Exam: normal sensation, normal motor functions Mental Status Exam: alert, oriented x 3, cooperative Skin Exam: normal color SpO2 Interpretation: normal SpO2: 97 O2 Delivery: Room Air Ordered Tests: Active Orders 24 hr Category Date Time Status WRIST (MIN 3 VIEWS) Stat Exams 09/02/24 05:26 Taken Medication Summary Discontinued Medications Generic Name Dose Route Start Last Admin Trade Name Freq PRN Reason Stop Dose Admin Ketorolac Tromethamine 30 mg 09/02/24 06:39 09/02/24 06:44 Ketorolac Tromethamine 30 Mg/Ml Inj IM 09/02/24 06:40 30 mg STAT ONE Administration Ketorolac Tromethamine Confirm 09/02/24 06:43 Ketorolac Tromethamine 30 Mg/Ml Inj Administered 09/02/24 06:44 Dose 30 mg .ROUTE .STK-MED ONE - Progress Progress: improved, pain not gone completely Progress Note: 09/02/24 07:08 38 years old [id number] is evaluated in the ER for pain in the wrist/base of thumb after he was scraping the floor yesterday with no injury otherwise. Has tenderness at the base of the thumb and anatomical snuffbox area with some swelling. X-rays wrist showed some questionable avulsion fracture scaphoid and arthritic changes at the base of the thumb reviewed by me, official final report is pending Given Toradol for symptomatic relief. Placed in thumb spica and outpatient orthopedic follow-up recommended. Discussed signs symptoms of worsening needing return to ER which he seems understanding. Stable for discharge. Counseled pt/family regarding: diagnosis, need for follow-up, rad results Medical Desision Making - Diagnostic Testing Diagnostic test were ordered, analyzed, and reviewed by me: Yes Radiological Interpretation: Interpreted by me, Reviewed by me - Risk of complications The pt has a mod risk of morbidity or mortality based on: Need for prescription drug management - Departure Departure Disposition: Home Clinical Impression: Hand fracture, right Condition: Stable Critical Care Time: No Referrals: GELY CHRISTOPHER NP [Primary Care Provider] - Follow up with PCP 1 day TERESA MARTINEZ MD [ACTIVE STAFF] - Follow up/PCP as directed (Call today for appointment for reevaluation) Instructions: Common Wrist Injuries ED Additional Instructions: Intermittent ice application. Avoid exertional activities. Follow-up with orthopedics for reevaluation. Return to ER for any worsening. Prescriptions: Ibuprofen 600 mg PO Q6HPRN PRN 10 Days #20 tablet PRN Reason: Pain
--- NOTE | 2024-09-02 08:47 | XRAY ---
Indication: Pain following injury. Comparison: None 3 view right wrist demonstrates 3 mm curvilinear ossification lateral to scaphoid either degenerative versus sequela old injury/inflammation. Acute cortical fracture fragment is not completely excluded in right clinical setting. No other bony, articular, or soft tissue abnormalities.
== END 2024-09-02 07:47 | disposition home or self-care (01) ==
LOC: ED 05:08
DX: S62.001A Unspecified fracture of navicular [scaphoid] bone of right wrist, initial encounter for closed fracture (principal); X50.9XXA Other and unspecified overexertion or strenuous movements or postures, initial encounter; Y93.E5 Activity, floor mopping and cleaning; Y99.0 Civilian activity done for income or pay; Z79.899 Other long term (current) drug therapy; Z72.0 Tobacco use
CPT/HCPCS: 73110; 96372; 99283; J1885